=== PATIENT | female | born 1950 | race Caucasian/White ===

== ENCOUNTER 2020-06-09 15:19 | Emergency (ER) | payer OTHER, SELFPAY ==
--- NOTE | ~2020-06-09 | CT_ITS ---
EXAMINATION: CT abdomen pelvis w con INDICATION: Lower abdominal pain TECHNIQUE: Computed tomographic images of the abdomen and pelvis were obtained after the administrati on of 100 cc of Omnipaque 350 intravenous contrast. The dose-length product (DLP) was 516.76 mGy-cm. Automated exposure control and iterative reconstruction technique were employed. COMPARISON: 02/03/2019 FINDINGS: Minimal dependent atelectasis is present in the lung bases. The heart size is normal. The l iver, spleen, pancreas, gallbladder, and adrenal glands are normal. There are peripelvic cysts of the otherwise normal-appearing kidneys. There is calcified atherosclerosis of the aorta and many of the other arteries. No pathologically enlarged abdominal or pelvic lymph nodes are identified. There is c olonic diverticulosis. There is wall thickening of the distal sigmoid colon with edematous stranding of the adjacent perisigmoid fat. No free intraperitoneal gas is identified. There are no dilated loop s of bowel. There is moderate lumbar spondylosis. IMPRESSION: 1. Acute sigmoid diverticulitis without complication. Reviewed, dictated and finalized at location [facility].
[2020-06-09 15:45] VITALS: BP 147/67; PULSE 85; RESP 18; TEMP 36.2; O2SAT 98
[2020-06-09 16:16] LABS: Basophils Absolute Auto 0.1 K/mm3 (0.0-0.1); Basophils Percent Auto 1.3 % (0.2-1.2); Eosinophils Absolute Auto 0.4 K/mm3 (0-0.3); Eosinophils Percent Auto 5.9 % (0-4.4); Hematocrit 39.4 % (37.0-47.0); Hemoglobin 13.3 g/dL (12.0-15.0); Immature Granulocyte Absolute 0.01 K/mm3 (0.00-0.031); Immature Granulocyte Percent A 0.2 % (0-0.5); Lymphocytes Absolute Auto 1.84 K/mm3 (0.9-3.2); Mean Corpuscular HGB Conc 33.8 g/dl (32-36); Mean Corpuscular Hemoglobin 30.8 pg (26-34); Mean Corpuscular Volume 91.2 fl (80-100); Monocytes Absolute Auto 0.7 K/mm3 (0.1-0.6); Monocytes Percent Auto 10.9 % (2.6-8.5); Neutrophils Absolute Auto 3.2 K/mm3 (1.3-6.7); Neutrophils Percent Auto 51.7 % (45.5-73.1); Platelet Count Result 265 k/mm3 (150-375); Red Blood Count 4.32 M/mm3 (4.2-5.4); Red Cell Distribution Width 11.9 % (11.5-14.5); White Blood Count 6.1 K/mm3 (4.5-10.0)
[2020-06-09 16:31] LABS: Alanine Aminotransferase 10 U/L (4-35); Albumin Level 4.4 g/dL (3.5-5.1); Alkaline Phosphatase 68 U/L (38-126); Anion Gap 9 mmol/L (8-16); Aspartate Amino Transferase 18 U/L (14-36); Bilirubin,Total 0.5 mg/dL (0.2-1.3); Blood Urea Nitrogen 18 mg/dL (7-17); Calcium 9.7 mg/dL (8.4-10.2); Carbon Dioxide 26 mmol/L (22-30); Chloride 107 mmol/L (98-107); Estimated CRCL calculation 49 ml/min; Estimated Glomerular Filt Rate > 60; Glucose 106 mg/dL (65-105); Lipase 35 U/L (23-300); Sodium 142 mmol/L (137-145)
--- NOTE | 2020-06-09 16:59 | ED.ABDPAIN ---
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 Patient reportedly sent here by her primary care physician for imaging studies. Patient has had 2 days of lower abdominal pain, cramping in nature. No back pain or upper abdominal pain. No chest pain or shortness of breath. No fever, chills, nausea or vomiting. Pain is sharp, cramping in nature worse with movement. No associated diarrhea or constipation. No dysuria or hematuria. Patient with history of hysterectomy, denies other abdominal surgeries. Related Data Allergies Allergy/AdvReac Type Severity Reaction Status Date / Time Penicillins Allergy Unknown Verified 06/09/20 17:09 Review of Systems Review of Systems: Narrative: CONSTITUTIONAL: Denies fever EYES: Denies visual changes ENT: Denies rhinorrhea CARDIOVASCULAR: Denies chest pain RESPIRATORY: Denies cough or dyspnea. GASTROINTESTINAL: Lower abdominal pain without nausea or vomiting GENITOURINARY: Denies dysuria or hematuria. SKIN: Denies rash or itching. MUSCULOSKELETAL: Denies back pain NEUROLOGIC: Denies headache PMFSH Past Medical History Medical History Diverticulitis Hypertension Surgical History Surgical History (Updated 06/09/20 @ 17:55 by Radha Cole MD) H/O inguinal hernia repair H/O: hysterectomy History of tonsillectomy Family History Family History (Updated 12/23/14 @ 20:48 by DOCTOR UNKNOWN) Mother Family history of Alzheimer's disease, Onset Age: 90 Patient's mother is , Onset Age: 90 Father Family history of coronary artery disease, Onset Age: 50 Patient's father is Social History Social History Smoking status: Never smoker Alcohol intake: never Gender identity (if verbalized by the patient): Female Exam Narrative: Exam Narrative: GENERAL: Awake, alert, conversant HEAD: Normocephalic, atraumatic. EYES: PERRLA and EOMI. ENT: Nares clear, no rhinorrhea or epistaxis. Mucous membranes moist. NECK: Supple. CHEST: No respiratory distress, breathing even and non labored HEART: Regular rate, sinus rhythm ABDOMEN:Non distended, mild lower abdominal tenderness left and right lower quadrant, no rebound, no guarding, nonrigid EXTREMITIES: Normal range of motion. No edema. SKIN: Warm, dry, no rash. NEURO:No focal deficits. Alert and oriented x3 Course Vital Signs Vital signs: Vital Signs Temperature 36.2 C L 06/09/20 15:45 Pulse Rate 85 06/09/20 15:45 Respiratory Rate 18 06/09/20 15:45 Blood Pressure 147/67 H 06/09/20 15:45 Pulse Oximetry 98 06/09/20 15:45 Temperature 36.2 C L 06/09/20 15:45 Pulse Rate 64 06/09/20 18:01 Respiratory Rate 15 06/09/20 18:01 Blood Pressure 133/58 L 06/09/20 18:01 Pulse Oximetry 96 06/09/20 18:01 MDM - Abdominal Pain MDM Narrative Medical decision making narrative: Patient presented for lower abdominal pain. Stable vital signs. No leukocytosis. No UTI. No electrolyte derangement. CT scan confirms acute uncomplicated sigmoid diverticulitis. Patient is tolerating oral intake, pain is controlled, no vomiting. Will be discharged home with oral antibiotics. Given close return precautions. I spoke with patient and her through a director of user experience at length regarding her symptoms, diagnosis today and treatment plan. Differential Diagnosis Differential diagnosis: Likely abdominal pain, acute appendicitis, diverticulitis and pancreatitis Medical Records Attestation: I reviewed the patient's medical records. Lab Data Attestation: I reviewed the patient's lab results. Result
[2020-06-09 17:21] LABS: Add Urine Microscopic? NO; Appearance Urine Clear (Clear); Bilirubin Urine Negative (Negative); Blood Urine Negative (Negative); Color Urine Yellow (Yellow); Glucose Urine UA Negative (Negative); Ketones Urine Negative (Negative); Leukocyte Esterase Ur Negative LEU/UL (Negative); Nitrate Urine Negative (Negative); Protein Urine Negative (Negative); Specific Grav Ur 1.027 (1.001-1.035); Urobilinogen Urine Negative mg/dL (<2.0)
[2020-06-09 18:01] VITALS: BP 133/58; PULSE 64; RESP 15; O2SAT 96
[2020-06-09 19:31] VITALS: BP 134/78; PULSE 72; RESP 16; TEMP 36.6; O2SAT 98
== END 2020-06-09 19:31 | disposition home or self-care (01) ==
PROVIDERS: General Practice; Emergency Provider Emergency Medicine; PCP Physician Assistant
DX: K57.92 Diverticulitis of intestine, part unspecified, without perforation or abscess without bleeding (principal); I10 Essential (primary) hypertension
CPT/HCPCS: 36415; 74177; 80053; 81003; 83690; 85025; 99284; Q9967

== ENCOUNTER → 2020-09-23 13:31 | Outpatient (CLI) | payer OTHER, SELFPAY ==
--- NOTE | ~2020-09-23 | MM_ITS ---
EXAMINATION: MM screening arlyn BI w chanell HISTORY: Screening mammogram TECHNIQUE: Craniocaudal and mediolateral oblique 3-D tomosynthesis images were obtained and synthetic 2-D images were generated. CAD analysis was submitted and interpreted. COMPARISON: 07/28/2019, 05/29/2018, 04/30/2017 bilateral digital screening mammogram examinations BREAST PARENCHYMAL COMPOSITION: There are scattered areas of fibroglandular density. FINDINGS: There is no evidence of suspicious mass, calcification, or architectural distortion to sugg est malignancy in either breast. There has been no suspicious interval change. IMPRESSION: 1. No mammographic evidence of malignancy. 2. Recommend routine screening mammography in one year. BI-RADS Category 1: Negative Reviewed, dictated and finalized at location A. OP ENGINEER
== END ==
PROVIDERS: Visit Provider Physician Assistant
DX: Z12.31 Encounter for screening mammogram for malignant neoplasm of breast (principal)
CPT/HCPCS: 77063; 77067

== ENCOUNTER → 2020-10-11 03:58 | Outpatient (CLI) | payer OTHER, SELFPAY ==
[2020-10-12 18:18] LABS: SARS-CoV-2 RNA PCR Negative
== END ==
PROVIDERS: Family Provider Family Medicine Adolescent Medicine; PCP Physician Assistant; Visit Provider Internal Medicine Gastroenterology
DX: Z01.812 Encounter for preprocedural laboratory examination (principal); Z20.822 Contact with and (suspected) exposure to COVID-19
CPT/HCPCS: C9803; U0003; U0005

== ENCOUNTER 2020-10-14 01:27 | Day surgery (SDC) | payer OTHER, SELFPAY ==
[2020-09-29 10:58] VITALS: BMI 26.4
[2020-10-14 09:55] VITALS: BP 92/40; PULSE 92; RESP 18; TEMP 35.9; O2SAT 97; BMI 25.7
--- NOTE | 2020-10-14 09:56 | WPDANESEPPF ---
Anes - Initial Pre Proc Eval Procedure: Operation Date: 10/14/20 11:00 Proposed Procedures p Esophagogastroduodenoscopy & Colonoscopy - Mario Portillo MD Date/Time: 10/14/20 09:56 Surgeon: Mario Portillo MD Pre Op Diagnosis: Weight loss, Nausea, Diverticulosis Patient Data Age: 70 Gender: F Height: 5 ft 4 in Weight: 70 kg Allergies Allergy/AdvReac Type Severity Reaction Status Date / Time Penicillins Allergy Unknown Verified 10/14/20 09:53 Home Medications Medication Instructions Recorded Confirmed Type hyoscyamine sulfate 0.125 mg tablet 0.125 mg PO QID 09/26/20 10/14/20 History omeprazole 20 mg capsule,delayed 20 mg PO DAILY 09/26/20 10/14/20 History release tolterodine 4 mg capsule,extended 4 mg PO Q24H 09/26/20 10/14/20 History release 24 hr vitamin B12 500 mcg-folic acid 400 1 tablet PO DAILY 09/26/20 10/14/20 History mcg tablet calcium carbonate-vit D3-min 1 tablet PO DAILY 09/29/20 10/14/20 History [Calcium-Vitamin D] Patient hx anesthesia problems: none Family hx anesthesia problems: none PMFSH Past Medical History Medical History (Updated 09/26/20 @ 14:43 by GARFIELD Helton) Diverticulitis Hypertension Nausea Weight loss Surgical History Surgical History H/O inguinal hernia repair H/O: hysterectomy History of tonsillectomy Family History Family History Mother Family history of Alzheimer's disease, Onset Age: 90 Patient's mother is , Onset Age: 90 Father Family history of coronary artery disease, Onset Age: 50 Patient's father is Social History Social History Smoking status: Never smoker Alcohol intake: never Substance use: never Substance use type: does not use Living arrangements: with family Gender identity (if verbalized by the patient): Female Spiritual care concerns: No Anes - Eval Final PreProcedure Day of Procedure 10/14/20 09:56 Patient weight: normal Heart: regular rate and rhythm Lungs: clear to auscultation Airway: Mallampati scale class II Neurological: alert and oriented Last oral intake: >/= 8 hours ASA classification: II Emergent: no Anesthetic plan: proceed Anesthesia type and monitoring: general GIVS and standard monitoring Informed Consent: The patient's anesthetic plan and its attendant risks and benefits were discussed with the patient/family/POA. Questions were solicited and answers provided to the satisfaction of the patient/family/POA.
[2020-10-14] MEDS: LACTATED RINGERS 1,000 ML 150 ML IV CONT (10:10)
--- NOTE | 2020-10-14 11:29 | WPDHPUPDATE1 ---
History and Physical Update Update Date/Time: 10/14/20 11:29 History and Physical has been reviewed, including an updated exam of the patient. There are NO changes in the patient's condition. Risks, benefits, and alternatives have been discussed and questions answered. Patient agrees to proceed with procedure.
--- NOTE | 2020-10-14 12:09 | SUR.OPER ---
EGD START 1141, END 1149 COLONOSCOPY START 1154, END 1207
[2020-10-14 12:10] VITALS: BP 110/63; PULSE 65; RESP 19; O2SAT 100
[2020-10-14 12:20] VITALS: BP 118/66; PULSE 66; RESP 16; O2SAT 100
[2020-10-14 12:30] VITALS: BP 126/50; PULSE 68; RESP 18; O2SAT 100
== END 2020-10-14 13:17 | disposition home or self-care (01) ==
PROVIDERS: Family Provider Family Medicine Adolescent Medicine; PCP Physician Assistant; Visit Provider Internal Medicine Gastroenterology
PROC: 0DJ08ZZ Inspection of Upper Intestinal Tract, Via Natural or Artificial Opening Endoscopic (ICD-10-PCS; CPT 43235; principal; 2020-10-14 11:00)
DX: Z12.11 Encounter for screening for malignant neoplasm of colon (principal); K29.50 Unspecified chronic gastritis without bleeding; K64.8 Other hemorrhoids; K57.30 Diverticulosis of large intestine without perforation or abscess without bleeding; R11.0 Nausea; R13.19 Other dysphagia; K44.9 Diaphragmatic hernia without obstruction or gangrene; K22.2 Esophageal obstruction; K29.70 Gastritis, unspecified, without bleeding; I10 Essential (primary) hypertension
CPT/HCPCS: 43239; 43249; G0121; 88305; C1726; C9803; J2001; J2704; J7120; U0003; U0005

== ENCOUNTER 2021-03-13 08:38 | Outpatient (CLI) | payer OTHER, SELFPAY ==
--- NOTE | ~2021-03-13 | CT_ITS ---
EXAMINATION: CT abdomen pelvis w con DATE: 03/13/2021 09:31 INDICATION: Abdominal pain TECHNIQUE: Computed tomography (CT) of the abdomen and pelvis was performed with 100 cc Omnipaque 350 intravenous contrast. Automated exposure control and iterative reconstruction technique were employe d. Exam dose: 488.46 mGy-cm total exam DLP. COMPARISON: 06/09/2020 CT abdomen pelvis FINDINGS: There is minimal discoid atelectasis or scarring at the lung bases. Normal heart size. No pericardial or pleural effusion. The liver, gallbladder, bile ducts, spleen, pancreas, pancreatic duct, and adrenal glands are unremar kable. 11 mm upper pole left renal cyst. 6.5 mm upper pole right renal cyst and probable small lower pole ri ght renal cyst. No urinary tract calculus or hydroureteronephrosis is evident. The urinary bladder is unremarkable. Status post hysterectomy. Small sliding hiatal hernia. There are numerous diverticula involving the sigmoid colon; no CT evidence of diverticulitis. No florence l obstruction, bowel wall thickening, pneumatosis or intraperitoneal free air is detected. There is atherosclerotic calcification of the abdominal aorta and iliac arteries but no aneurysm. There are degenerative changes of the thoracic and lumbar spine including grade 1 anterolisthesis at L4-5 due to degenerative change at the apophyseal joints. No suspicious osteolytic or osteoblastic le sions. IMPRESSION: Sigmoid: Diverticulosis; no CT evidence of diverticulitis Small sliding hiatal hernia Renal cysts Status post hysterectomy Reviewed, dictated and finalized at [facility]. Reviewed, dictated and finalized at location B.
[2021-03-13 09:21] LABS: Estimated Glomerular Filt Rate > 60
== END 2021-03-13 08:39 | disposition home or self-care (01) ==
PROVIDERS: PCP Physician Assistant; Visit Provider Physician Assistant
DX: K57.30 Diverticulosis of large intestine without perforation or abscess without bleeding (principal); K44.9 Diaphragmatic hernia without obstruction or gangrene; N28.1 Cyst of kidney, acquired
CPT/HCPCS: 74177; Q9967

== ENCOUNTER → 2021-10-10 14:26 | Outpatient (CLI) | payer OTHER, SELFPAY ==
--- NOTE | ~2021-10-10 | MM_ITS ---
EXAMINATION: MM screening arlyn BI w chanell HISTORY: Screening TECHNIQUE: Craniocaudal and mediolateral oblique 3-D tomosynthesis images were obtained and synthetic 2-D images were generated. CAD analysis was submitted and interpreted. COMPARISON: Comparison to multiple prior studies sequentially, with oldest reviewed study dated 04/25. BREAST PARENCHYMAL COMPOSITION: There are scattered areas of fibroglandular density. FINDINGS: There is no evidence of suspicious mass, calcification, or architectural distortion to sugg est malignancy in either breast. There has been no suspicious interval change. IMPRESSION: 1. No mammographic evidence of malignancy. 2. Recommend routine screening mammography in one year. BI-RADS Category 1: Negative Reviewed, dictated and finalized at location A. MARKETING DIRECTOR
== END ==
PROVIDERS: PCP Physician Assistant; Visit Provider Physician Assistant
DX: Z12.31 Encounter for screening mammogram for malignant neoplasm of breast (principal)
CPT/HCPCS: 77063; 77067

== ENCOUNTER → 2022-01-18 12:25 | Outpatient (CLI) | payer OTHER, SELFPAY ==
--- NOTE | ~2022-01-18 | CT_ITS ---
EXAMINATION: CT brain wo/w con DATE: 01/18/2022 13:22 INDICATION: Dizziness. Alzheimer's. TECHNIQUE: Computed tomography (CT) of the head was performed without and with 100 cc Omnipaque 300 i ntravenous contrast. The dose-length product was 1199.14 mGy-cm. Automated exposure control and itera tive reconstruction technique were employed. COMPARISON: MRI dated 03/26/2006 FINDINGS: Mild generalized atrophy. There are scattered mild periventricular and subcortical white ma tter changes, most likely related to small vessel ischemic disease (microangiopathy). No ventriculome lima or midline shift. No acute intracranial hemorrhage, infarction, mass or mass effect. Basilar cis terns are patent. No abnormal contrast enhancement. There is mucosal thickening of the maxillary and ethmoid sinuses. Mastoids are pneumatized. Midline sagittal images demonstrate a normal corpus callos um and craniovertebral junction. IMPRESSION: 1. No acute intracranial abnormality. 2: Moderate sinus disease. Reviewed, dictated and finalized at location B.
[2022-01-18 13:04] LABS: Estimated Glomerular Filt Rate > 60
== END ==
PROVIDERS: PCP Physician Assistant; Visit Provider Physician Assistant
DX: R42 Dizziness and giddiness (principal); R41.3 Other amnesia; J32.9 Chronic sinusitis, unspecified
CPT/HCPCS: 70470; Q9967

== ENCOUNTER → 2022-11-27 10:31 | Outpatient (CLI) | payer OTHER, SELFPAY ==
--- NOTE | ~2022-11-27 | XR_ITS ---
Thoracic spine: Clinical Indication: Back pain AP and lateral views were performed. No fracture is seen. There is normal alignment of the vertebrae. The intervertebral disc spaces appe ar normal. Paravertebral soft tissues appear normal. Impression: No significant abnormalities noted. Reviewed, dictated and finalized at [facility]. Impression: No significant abnormalities noted.
--- NOTE | ~2022-11-27 | MM_ITS ---
EXAMINATION: MM screening arlyn BI w chanell HISTORY: Screening TECHNIQUE: Craniocaudal and mediolateral oblique 3-D tomosynthesis images were obtained and synthetic 2-D images were generated. CAD analysis was submitted and interpreted. COMPARISON: Comparison to multiple prior studies sequentially, with oldest reviewed study dated 04/25. BREAST PARENCHYMAL COMPOSITION: Breast composed of scattered areas of fibroglandular density FINDINGS: There is no evidence of suspicious mass, calcification, or architectural distortion to sugg est malignancy in either breast. There has been no suspicious interval change. IMPRESSION: 1. No mammographic evidence of malignancy. 2. Recommend routine screening mammography in one year. BI-RADS Category 1: Negative Reviewed, dictated and finalized at location A.
== END ==
PROVIDERS: PCP Physician Assistant; Visit Provider Physician Assistant
DX: Z12.31 Encounter for screening mammogram for malignant neoplasm of breast (principal); M54.6 Pain in thoracic spine
CPT/HCPCS: 72072; 77063; 77067

== ENCOUNTER → 2023-02-11 10:21 | Outpatient (CLI) | payer OTHER, SELFPAY ==
--- NOTE | ~2023-02-11 | DEXA_ITS ---
Bone Density Report Name: NAVEEN OH Age: 72 Sex: Female Ethnicity: White Date of : 1950 Indication: osteopenia; height loss; prior fracture; hysterectomy; postmenopausal Referring Provider: KELLY, KRISS Study: Bone densitometry was performed. Exam Date: February 11, 2023 Accession number: [id number] Bone Density: Region BMD T-score Z-score Classification AP Spine (L1-L4) 0.803 -2.2 0.1 Osteopenia Femoral Neck (Left) 0.594 -2.3 -0.3 Osteopenia Total Hip (Left) 0.848 -0.8 0.9 Normal Femoral Neck (Right) 0.575 -2.5 -0.5 Osteoporosis Total Hip (Right) 0.763 -1.5 0.2 Osteopenia Total Hip Mean 0.806 -1.2 0.6 Osteopenia World Health Organization criteria for BMD impression classify patients as: Normal (T-score at or above -1.0), Osteopenia (T-score between -1.0 and -2.5), or Osteoporosis (T-score at or below -2.5). 10-year Fracture Risk: FRAX not reported because: Some T-score for Spine Total or Hip Total or Femoral Neck at or below -2.5 Previous Exams: Region Exam Age BMD T-score BMD Change BMD Change Date g/cm2 vs Baseline vs Previous AP Spine(L1-L4) 02/11/2023 72 0.803 -2.2 -0.062* -0.024* 07/28/2019 68 0.827 -2.0 -0.038* -0.037* 04/06/2015 64 0.864 -1.7 -0.001 0.053* 02/11/2013 62 0.811 -2.1 -0.054* -0.041* 12/25/2010 60 0.852 -1.8 -0.013 -0.013 12/08/2007 57 0.865 -1.7 Total Hip(Left) 02/11/2023 72 0.848 -0.8 -0.099* -0.019 07/28/2019 68 0.866 -0.6 -0.080* -0.097* 04/06/2015 64 0.963 0.2 0.017 0.088* 02/11/2013 62 0.875 -0.6 -0.072* -0.041* 12/25/2010 60 0.915 -0.2 -0.031* -0.031* 12/08/2007 57 0.946 0.0 Total Hip(Right) 02/11/2023 72 0.763 -1.5 -0.123* -0.042* 07/28/2019 68 0.804 -1.1 -0.082* -0.081* 04/06/2015 64 0.885 -0.5 -0.001 0.081* 02/11/2013 62 0.804 -1.1 -0.082* -0.036* 12/25/2010 60 0.840 -0.8 -0.046* -0.046* 12/08/2007 57 0.886 -0.5 *Denotes significance at 95% confidence level, LSC for AP Spine = 0.022 g/cm2, LSC for Total Hip = 0.027 g/cm2 Clinical Information Provided by Patient: Has had a low trauma fracture Has used the following medications: Vitamin D, Calcium Has the following medical conditions: Hysterectomy Patient maximum height was 65
== END ==
PROVIDERS: PCP Physician Assistant; Visit Provider Physician Assistant
DX: M81.0 Age-related osteoporosis without current pathological fracture (principal); Z78.0 Asymptomatic menopausal state; Z90.710 Acquired absence of both cervix and uterus
CPT/HCPCS: 77080

== ENCOUNTER 2024-01-30 11:10 | Emergency (ER) | payer OTHER, SELFPAY ==
--- NOTE | ~2024-01-30 | CT_ITS ---
EXAMINATION: CT abdomen pelvis w con DATE: 01/30/2024 12:37 INDICATION: Abdominal pain. TECHNIQUE: Computed tomography (CT) of the abdomen and pelvis was performed with 100 mL Omnipaque 350 intravenous contrast. Automated exposure control and iterative reconstruction technique were employe d. The dose-length product was 443.08 mGy-cm. COMPARISON: CT abdomen and pelvis 03/13/2021 FINDINGS: The visualized portions of the lung bases demonstrate mild atelectasis. No pleural effusion . The heart size is normal. No pericardial effusion. The liver is normal. The gallbladder is distende d, likely secondary to fasting. The spleen, pancreas, and adrenal glands are normal. There is cortica l thinning of the kidneys. There are cysts in the kidneys measuring up to 1.7 cm on the left. There i s calcified atherosclerosis of the aorta and many of the other arteries. There are scattered divertic remy in the colon. There is wall thickening of the sigmoid colon with surrounding fat stranding, consi stent with diverticulitis. There are no dilated loops of bowel. The appendix is not visualized. There are no pathologically enlarged lymph nodes. There is no ascites. There is mild thoracic spondylosis and moderate lumbar spondylosis. There is mild chronic anterior wedging of multiple thoracic vertebra l bodies. IMPRESSION: 1. Acute sigmoid diverticulitis. No perforation or abscess. Reviewed, dictated and finalized at location A.
[2024-01-30 11:18] VITALS: BP 148/73; PULSE 87; RESP 14; TEMP 36.8; O2SAT 97
[2024-01-30 11:45] LABS: Basophils Absolute Auto 0.1 K/mm3 (0.0-0.1); Basophils Percent Auto 0.4 % (0.2-1.2); Eosinophils Absolute Auto 0.1 K/mm3 (0-0.3); Eosinophils Percent Auto 0.3 % (0-4.4); Hematocrit 40.1 % (37.0-47.0); Hemoglobin 13.2 g/dL (12.0-15.0); Immature Granulocyte Absolute 0.06 K/mm3 (0.00-0.031); Immature Granulocyte Percent A 0.4 % (0-0.5); Lymphocytes Absolute Auto 0.87 K/mm3 (0.9-3.2); Lymphocytes Percent Auto 5.8 % (18.3-44.2); Mean Corpuscular HGB Conc 32.9 g/dl (32-36); Mean Corpuscular Volume 94.1 fl (80-100); Mean Platelet Volume 10.3 fl (7.4-10.4); Monocytes Absolute Auto 0.9 K/mm3 (0.1-0.6); Monocytes Percent Auto 5.6 % (2.6-8.5); Neutrophils Absolute Auto 13.2 K/mm3 (1.3-6.7); Neutrophils Percent Auto 87.5 % (45.5-73.1); Platelet Count Result 230 k/mm3 (150-375); Red Blood Count 4.26 M/mm3 (4.2-5.4); Red Cell Distribution Width 12.7 % (11.5-14.5); White Blood Count 15.1 K/mm3 (4.5-10.0)
[2024-01-30 11:56] LABS: Alanine Aminotransferase 20 U/L (6-35); Albumin Level 4.4 g/dL (3.5-5.1); Alkaline Phosphatase 77 U/L (38-126); Anion Gap 7 mmol/L (4-12); Aspartate Amino Transferase 38 U/L (14-36); Bilirubin,Total 0.8 mg/dL (0.2-1.3); Blood Urea Nitrogen 15 mg/dL (7-17); Calcium 9.2 mg/dL (8.4-10.2); Carbon Dioxide 23 mmol/L (22-30); Chloride 105 mmol/L (98-107); Estimated CRCL calculation 55 ml/min; Estimated Glomerular Filt Rate > 60; Glucose 140 mg/dL (65-110); Lipase 35 U/L (23-300); Sodium 135 mmol/L (137-145)
[2024-01-30 12:11] LABS: Appearance Urine Clear (Clear); Bilirubin Urine Negative (Negative); Blood Urine Negative (Negative); Color Urine Yellow (Yellow); Glucose Urine UA Negative (Negative); Ketones Urine Negative (Negative); Leukocyte Esterase Ur Negative LEU/UL (Negative); Nitrate Urine Negative (Negative); Protein Urine Negative (Negative); Specific Grav Ur 1.019 (1.001-1.035); pH Urine 7.5 (5.0-9.0)
--- NOTE | 2024-01-30 12:14 | ED.ABDPAIN ---
HPI - Abdominal Pain General Chief Complaint: Abdominal Pain Stated Complaint: ulcer Time Seen by Provider: 01/30/24 11:56 History of Present Illness HPI narrative: [age] female presenting to the emergency department for evaluation for abdominal pain. Patient reports the pain did started approximately 430 this morning. Patient does report associated nausea. Patient is deaf and does communicate by writing. Related Data Home Medications Medication Instructions Recorded Confirmed hyoscyamine sulfate 0.125 mg tablet 0.125 mg PO QID 09/26/20 10/14/20 omeprazole 20 mg capsule,delayed 20 mg PO DAILY 09/26/20 10/14/20 release tolterodine 4 mg capsule,extended 4 mg PO Q24H 09/26/20 10/14/20 release 24 hr vitamin B12 500 mcg-folic acid 400 1 tablet PO DAILY 09/26/20 10/14/20 mcg tablet calcium carb-vit D3-minerals 600 1 tablet PO DAILY 09/29/20 10/14/20 mg calcium-400 unit tablet Allergies Allergy/AdvReac Type Severity Reaction Status Date / Time Penicillins Allergy Unknown Verified 01/30/24 11:27 Review of Systems Review of Systems: All systems reviewed & are unremarkable except as noted in HPI and below PMFSH Past Medical History Medical History (Updated 01/30/24 @ 13:01 by Andres Alves MD) Diverticulitis Hypertension Nausea Weight loss Surgical History Surgical History H/O inguinal hernia repair H/O: hysterectomy History of tonsillectomy Family History Family History Mother Family history of Alzheimer's disease, Onset Age: 90 Patient's mother is , Onset Age: 90 Father Family history of coronary artery disease, Onset Age: 50 Patient's father is Social History Social History Smoking status: Never smoker Alcohol intake: never Substance use: never Substance use type: does not use Living arrangements: with family Gender identity (if verbalized by the patient): Female Spiritual care concerns: No Exam Narrative: APPEARANCE: Well appearing, no pain, no distress, well-nourished. HEAD: normocephalic, atraumatic. EYES: PERRLA/EOMI, conjunctivae clear. NOSE: Normal no drainage EARS:TMS clear with good light reflex. THROAT: Pharynx clear, no exudate. NECK: Supple. No adenopathy, no masses. RESPIRATORY: Airway patent, respirations nonlabored. Clear to auscultation bilaterally, no rales, rhonchi, wheezing. CARDIOVASCULAR: Regular rate and rhythm without murmurs rubs or gallops. ABDOMINAL: Diffuse low abdominal tenderness to palpation MUSCULOSKELETAL: Moves all extremities. Strength/ROM intact, No edema, No calf tenderness. NEURO: Alert. Cranial nerves II through XII intact. Grossly Course Vital Signs Vital signs: Vital Signs Temperature 98.3 F 01/30/24 11:18 Pulse Rate 87 01/30/24 11:18 Respiratory Rate 14 01/30/24 11:18 Blood Pressure 148/73 H 01/30/24 11:18 Pulse Oximetry 97 01/30/24 11:18 Oxygen Delivery Room Air 01/30/24 11:18 Temperature 98.3 F 01/30/24 11:18 Pulse Rate 87 01/30/24 11:18 Respiratory Rate 14 01/30/24 11:18 Blood Pressure 148/73 H 01/30/24 11:18 Pulse Oximetry 97 01/30/24 11:18 Oxygen Delivery Room Air 01/30/24 11:18 MDM - Abdominal Pain MDM Narrative Medical decision making narrative: [age] female present to the emergency department for evaluation of abdominal pain. Patient is afebrile with normal vital signs. Patient does have a leukocytosis of 15.1 with a stable hemoglobin. No acute abnormalities on the patient's CMP and patient's UA was negative. CT scan does show evidence diverticulitis with no abscess or perforation. Patient was updated on results of her workup. Patient states that she does feel strong for discharge her home and that her pain is contro
[2024-01-30 12:16] LABS: Add Urine Microscopic? NO
[2024-01-30] MEDS: metroNIDAZOLE 500 MG TABLET PO (13:07)
[2024-01-30] MEDS: CIPROFLOXACIN 500 MG TAB PO (13:07)
== END 2024-01-30 13:12 | disposition home or self-care (01) ==
PROVIDERS: Student in an Organized Health Care Education/Training Program; Emergency Provider Emergency Medicine
DX: K57.32 Diverticulitis of large intestine without perforation or abscess without bleeding (principal); I10 Essential (primary) hypertension; H91.90 Unspecified hearing loss, unspecified ear; Z90.710 Acquired absence of both cervix and uterus; Z79.899 Other long term (current) drug therapy
CPT/HCPCS: 36415; 74177; 80053; 81003; 83690; 85025; 99284; A9270; Q9967

== ENCOUNTER 2024-02-08 11:41 | Emergency (ER) | payer OTHER, SELFPAY ==
--- NOTE | 2024-02-08 11:55 | ED.SKABFB ---
HPI - Skin/Abscess/Foreign Bdy General Chief complaint: Skin/Abscess/Foreign Body Stated complaint: Itchy Rash on Arms Time Seen by Provider: 02/08/24 12:00 Source: patient, RN notes reviewed and old records reviewed Mode of arrival: ambulatory Limitations: no limitations History of Present Illness HPI narrative: 73-year-old female presents to the [facility] with itchy rash to her arms. States that she just finished antibiotics 2 days ago. Tried some new cod fish yesterday. Has some new sheets but will reports that she did wash arm. Denies any new creams or ointments lotions detergents. No treatment prior to arrival Related Data Home Medications Medication Instructions Recorded Confirmed hyoscyamine sulfate 0.125 mg tablet 0.125 mg PO QID 09/26/20 02/08/24 omeprazole 20 mg capsule,delayed 20 mg PO DAILY 09/26/20 02/08/24 release tolterodine 4 mg capsule,extended 4 mg PO Q24H 09/26/20 02/08/24 release 24 hr vitamin B12 500 mcg-folic acid 400 1 tablet PO DAILY 09/26/20 02/08/24 mcg tablet calcium carb-vit D3-minerals 600 1 tablet PO DAILY 09/29/20 02/08/24 mg calcium-400 unit tablet Allergies Allergy/AdvReac Type Severity Reaction Status Date / Time Penicillins Allergy Unknown Verified 02/08/24 11:44 Review of Systems Review of Systems: All systems reviewed & are unremarkable except as noted in HPI and below Constitutional: Constitutional: Reports no additional constitutional complaints Eyes: Eyes: Reports no additional eye complaints ENT: Reports system reviewed and no additional complaints, except as documented Cardiovascular: Cardiovascular: Reports no additional cardiovascular complaints, Denies chest pain and Denies dyspnea Respiratory: Respiratory: Reports no additional respiratory complaints, Denies chest congestion, Denies cough and Denies dyspnea Gastrointestinal: Gastrointestinal: Reports no additional gastrointestinal complaints, Denies abdominal pain, Denies nausea and Denies vomiting Musculoskeletal: Musculoskeletal: Reports no additional musculoskeletal complaints Integumentary/Breasts: Skin/Breast: Reports as per HPI Neurologic: Reports system reviewed and no additional complaints, except as documented Psychiatric: Psychiatric: Reports no additional psychiatric complaints Allergic/Immunologic: Allergic/Immunologic: Reports no additional allergic/immunologic complaints PMFSH Past Medical History Medical History Diverticulitis Hypertension Nausea Weight loss Surgical History Surgical History H/O inguinal hernia repair H/O: hysterectomy History of tonsillectomy Family History Family History Mother Family history of Alzheimer's disease, Onset Age: 90 Patient's mother is , Onset Age: 90 Father Family history of coronary artery disease, Onset Age: 50 Patient's father is Social History Social History Smoking status: Never smoker Alcohol intake: never Substance use: never Substance use type: does not use Living arrangements: with family Gender identity (if verbalized by the patient): Female Spiritual care concerns: No Comments At the time of my signature, I reviewed and agree with the nursing past medical, surgical, social, and family history. There is no relevant family history pertinent to the patient complaint. Exam Const: General: cooperative, healthy appearing, comfortable, no acute distress, well developed, alert and well nourished Nutritional Appearance: well nourished Orientation/consciousness: patient oriented x3 Limitations: no limitations HENMT: Head: normal to inspection Ears: hearing grossly normal bilaterally and external ears normal Face/Nose/Sinus: Normal external nose presen
[2024-02-08 11:56] VITALS: BP 127/51; PULSE 74; RESP 16; TEMP 36.6; O2SAT 100
== END 2024-02-08 12:25 | disposition home or self-care (01) ==
PROVIDERS: Emergency Provider Nurse Practitioner; PCP Physician Assistant
DX: L50.9 Urticaria, unspecified (principal); I10 Essential (primary) hypertension
CPT/HCPCS: 99213; G0463

== ENCOUNTER 2024-02-18 12:34 | Outpatient (CLI) | payer OTHER, SELFPAY ==
--- NOTE | ~2024-02-18 | CT_ITS ---
CT abdomen pelvis w con Ordering provider: Leonie Barrios, ROLO History: 73 years Female with . LLQ PAIN . Comparison: January 30, 2024 Technique: CT abdomen and pelvis with IV and without oral contrast. Radiation reduction technique uti lized. DLP measures 408.15 mGy. Findings: VISUALIZED LOWER CHEST: Dependent atelectatic changes. UPPER ABDOMINAL ORGANS: Liver: Normal. Gallbladder: Normal. Spleen: Normal. Stomach/duodenum: Small sliding hiatus hernia. Slightly thickened wall of the stomach. Pancreas: Normal. Adrenals: Normal. Kidneys: Bilateral renal cysts. PELVIC ORGANS: The bladder is underfilled. BOWEL AND MESENTERY: Colon: Mild sigmoid diverticulosis without diverticulitis. Fecal material seen in the colon suggestiv e of constipation. No evidence of appendicitis. Small Bowel: Normal. No obstruction. Peritoneum/mesentery: No free air or free fluid. No mesenteric lymphadenopathy. RETROPERITONEUM: Mild atheromatous disease of the abdominal aorta. No retroperitoneal lymphadenopat hy. MUSCULOSKELETAL: Superficial soft tissues: The superficial soft tissues are normal. Bones: Normal spine. IMPRESSION: 1. No acute abdominal process with no evidence of appendicitis, diverticulitis or intestinal obstruc tion. 2. Constipation. Reviewed, dictated and finalized at location A. IMPRESSION: 1. No acute abdominal process with no evidence of appendicitis, diverticulitis or intestinal obstruction. 2. Constipation.
== END 2024-02-18 12:35 | disposition home or self-care (01) ==
LOC: ANHIMG 12:37
PROVIDERS: PCP Physician Assistant; Visit Provider Physician Assistant
DX: R10.32 Left lower quadrant pain (principal); K59.00 Constipation, unspecified
CPT/HCPCS: 74177; Q9967

== ENCOUNTER 2024-04-17 08:37 | Outpatient (CLI) | payer OTHER, SELFPAY ==
--- NOTE | ~2024-04-17 | CT_ITS ---
EXAMINATION: CT abdomen pelvis w con DATE: 04/17/2024 09:31 INDICATION: Left lower quadrant abdominal pain TECHNIQUE: Computed tomography (CT) of the abdomen and pelvis was performed with 100 mL Omnipaque-350 intravenous contrast. Automated exposure control and iterative reconstruction technique were employe d. The dose-length product was 550.58 mGy-cm. COMPARISON: 02/18/2024 FINDINGS: Mild dependent atelectasis in the bilateral lower lobes. Heart size is normal. No pericardial or pleu ral effusion. Liver, gallbladder, spleen, pancreas and bilateral adrenal glands are normal. A few sub centimeter cysts at both kidneys with additional small parapelvic cysts at the left kidney. There is moderate colonic diverticulosis with a sigmoid predominance and without adjacent inflammatory change to suggest diverticulitis. No bowel obstruction. The uterus is not identified and has likely been pope rgically resected. Bladder is normal. Several surgical clips position between the along the anteroinf erior bladder and along the deep margin of the inferior anterior pelvic wall. No free intraperitoneal gas or fluid. No pathologically enlarged abdominal or pelvic lymphadenopathy. Mild lumbar levocurvat ure with mild to moderate spondylosis. There is mild thoracic spondylosis with chronic mild anterior wedging of a couple lower thoracic vertebral bodies. IMPRESSION: 1. Diverticulosis without evident diverticulitis or other acute intra-abdominal/pelvic process. Reviewed, dictated and finalized at location A. IMPRESSION: 1. Diverticulosis without evident diverticulitis or other acute intra-abdominal /pelvic process.
[2024-04-17 09:22] LABS: Estimated Glomerular Filt Rate > 60
[2024-04-17 10:14] LABS: Hematocrit 37.9 % (37.0-47.0); Hemoglobin 12.5 g/dL (12.0-15.0); Mean Corpuscular Hemoglobin 31.3 pg (26-34); Mean Platelet Volume 10.7 fl (7.4-10.4); Platelet Count Result 218 k/mm3 (150-375); Red Blood Count 3.99 M/mm3 (4.2-5.4); Red Cell Distribution Width 12.8 % (11.5-14.5); White Blood Count 5.2 K/mm3 (4.5-10.0)
[2024-04-17 10:17] LABS: Add Urine Microscopic? NO; Appearance Urine Clear (Clear); Bilirubin Urine Negative (Negative); Blood Urine Negative (Negative); Color Urine Yellow (Yellow); Glucose Urine UA Negative (Negative); Ketones Urine Negative (Negative); Leukocyte Esterase Ur Negative LEU/UL (Negative); Nitrate Urine Negative (Negative); Protein Urine Negative (Negative); Specific Grav Ur > 1.045 (1.001-1.035); Urobilinogen Urine 0.2 mg/dL (<2.0)
[2024-04-17 10:39] LABS: CRP < 0.5 mg/dL (<1.0)
[2024-04-17 12:10] LABS: Erythrocyte Sedimentation Rate 28 mm/hr (0-20)
== END 2024-04-17 08:38 | disposition home or self-care (01) ==
LOC: ANHIMG 08:49
PROVIDERS: PCP Physician Assistant; Visit Provider Nurse Practitioner
DX: R10.32 Left lower quadrant pain (principal); K57.90 Diverticulosis of intestine, part unspecified, without perforation or abscess without bleeding; K58.1 Irritable bowel syndrome with constipation; R10.2 Pelvic and perineal pain; R63.4 Abnormal weight loss; R82.90 Unspecified abnormal findings in urine; Z87.19 Personal history of other diseases of the digestive system
CPT/HCPCS: 36415; 74177; 81003; 85027; 85652; 86140; Q9967

== ENCOUNTER 2024-05-11 13:36 | Outpatient (CLI) | payer OTHER, SELFPAY ==
--- NOTE | ~2024-05-11 | MM_ITS ---
EXAMINATION: MM screening arlyn BI w chanell HISTORY: Screening mammogram TECHNIQUE: Craniocaudal and mediolateral oblique 3-D tomosynthesis images were obtained and synthetic 2-D images were generated. CAD analysis was submitted and interpreted. COMPARISON: 11/27/2022, 10/10/2021, 09/23/2020 BREAST PARENCHYMAL COMPOSITION:Not Dense. The breasts are almost entirely fatty FINDINGS: No suspicious mass, calcification, or architectural distortion are identified in either oumar ast to suggest malignancy. There has been no suspicious interval change. IMPRESSION: No mammographic evidence of malignancy. Recommend routine screening mammography in one year. BI-RADS Category 1: Negative Reviewed, dictated and finalized at location .
== END 2024-05-11 13:37 | disposition home or self-care (01) ==
LOC: MICIMG 13:37
PROVIDERS: PCP Physician Assistant; Visit Provider Physician Assistant
DX: Z12.31 Encounter for screening mammogram for malignant neoplasm of breast (principal)
CPT/HCPCS: 77063; 77067

== ENCOUNTER 2024-06-23 14:51 | Outpatient (CLI) | payer OTHER, SELFPAY ==
--- NOTE | ~2024-06-23 | XR_ITS ---
XR shoulder RT min 2V Ordering provider: Leonie Barrios, ROLO History: . Chronic R shoulder pain . Comparison: None. FINDINGS: BONES: No acute fracture or dislocation. JOINT SPACES: The acromioclavicular joint shows mild osteoarthritic changes. The glenohumeral joint i s normal. SOFT TISSUES: Normal. IMPRESSION: No acute osseous abnormality right shoulder. Reviewed, dictated and finalized at location A.
--- NOTE | ~2024-06-23 | XR_ITS ---
XR hip LT 2V w AP pelvis 06/23/2024 15:25 Indication: Hip pain Procedure: 3 views of the left hip including AP pelvis Comparison: No prior studies for comparison. Findings: No fracture, subluxation or dislocation. There is mild osteoarthritis in the left hip. No s ignificant soft tissue abnormality. No foreign bodies. Impression: 1: Mild osteoarthritis of the left hip. Reviewed, dictated and finalized at location B. Impression: 1: Mild osteoarthritis of the left hip.
== END 2024-06-23 14:52 | disposition home or self-care (01) ==
LOC: MICIMG 14:52
PROVIDERS: PCP Physician Assistant; Visit Provider Physician Assistant
DX: M25.511 Pain in right shoulder (principal); G89.29 Other chronic pain; M16.12 Unilateral primary osteoarthritis, left hip
CPT/HCPCS: 73030; 73502

== ENCOUNTER 2024-08-14 03:29 | Day surgery (SDC) | payer OTHER, SELFPAY ==
[2024-05-29 12:44] VITALS: BMI 27.5
[2024-07-08 15:31] VITALS: BMI 27.5
[2024-08-05 13:36] VITALS: BMI 27.5
--- NOTE | 2024-08-14 12:58 | P.PNAN_ITS ---
Anes - Initial Pre Proc Eval Procedure: Operation Date: 08/14/24 14:30 Proposed Procedures p Colonoscopy - Mario Portillo MD Date/Time: 08/14/24 12:58 Surgeon: Mario Portillo MD Pre Op Diagnosis: LLQ Pain, Constipation, Diverticulitis w/o bleedin Patient Data Age: 73 Gender: F Height: 1.6 m Weight: 70.4 kg Allergies Allergy/AdvReac Type Severity Reaction Status Date / Time Penicillins Allergy Unknown Verified 08/05/24 13:35 Home Medications ?Medication ?Instructions ?Recorded ?Confirmed ?Type omeprazole 20 mg capsule,delayed 20 mg PO DAILY 09/26/20 08/05/24 History release tolterodine 4 mg capsule,extended 4 mg PO Q24H 09/26/20 08/05/24 History release 24 hr calcium 600 mg (as carbonate)-vit 1 tablet PO DAILY 09/29/20 08/05/24 History D3 10 mcg (400 unit)-minerals tablet risedronate 150 mg tablet 150 mg PO DAILY 07/08/24 08/05/24 History Patient hx anesthesia problems: none Family hx anesthesia problems: none Results Review: All pre-operative results and documents have been reviewed as part of the pre- operative evaluation. [facility] Past Medical History Medical History Hiatal hernia Schatzki's ring Chronic gastritis (03/26/24) Irritable bowel syndrome with constipation Hx of diverticulitis of colon Nausea Weight loss Hypertension Diverticulitis Surgical History Surgical History History of tonsillectomy H/O inguinal hernia repair H/O: hysterectomy Family History Family History Mother Family history of Alzheimer's disease, Onset Age: 90 Patient's mother is , Onset Age: 90 Father Family history of coronary artery disease, Onset Age: 50 Patient's father is Social History Social History Smoking status: Never smoker Alcohol intake: never Substance use: never Substance use type: does not use Living arrangements: with family Gender identity (if verbalized by the patient): Female Spiritual care concerns: No Anes - Eval Final PreProcedure Day of Procedure 08/14/24 12:58 Patient weight: overweight Heart: regular rate and rhythm Lungs: clear to auscultation Airway: Mallampati scale class II Neurological: alert and oriented Last oral intake: >/= 8 hours ASA classification: II Emergent: no Anesthetic plan: proceed Anesthesia type and monitoring: general GIVS Results Review: All pre-operative results and documents have been reviewed as part of the pre- operative evaluation. Informed Consent: The patient's anesthetic plan and its attendant risks and benefits were discussed with the patient/family/POA. Questions were solicited and answers provided to the satisfaction of the patient/family/POA.
--- NOTE | 2024-08-14 13:11 | P.HP_ITS ---
History of Present Illness History of Present Illness Consent: Risks, benefits, and alternatives have been discussed and questions answered. Patient agrees to proceed with procedure. 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) Review of Systems Review of Systems: All systems reviewed & are unremarkable except as noted in HPI and below PMFSH Past Medical History Medical History Hiatal hernia Schatzki's ring Chronic gastritis (03/26/24) Irritable bowel syndrome with constipation Hx of diverticulitis of colon Nausea Weight loss Hypertension Diverticulitis Surgical History Surgical History History of tonsillectomy H/O inguinal hernia repair H/O: hysterectomy Family History Family History Mother Family history of Alzheimer's disease, Onset Age: 90 Patient's mother is , Onset Age: 90 Father Family history of coronary artery disease, Onset Age: 50 Patient's father is Social History Social History Smoking status: Never smoker Alcohol intake: never Substance use: never Substance use type: does not use Living arrangements: with family Gender identity (if verbalized by the patient): Female Spiritual care concerns: No Meds Home Medications and Allergies Home Medications ?Medication ?Instructions ?Recorded ?Confirmed ?Type omeprazole 20 mg capsule,delayed 20 mg PO DAILY 09/26/20 08/14/24 History release tolterodine 4 mg capsule,extended 4 mg PO Q24H 09/26/20 08/14/24 History release 24 hr calcium 600 mg (as carbonate)-vit 1 tablet PO DAILY 09/29/20 08/14/24 History D3 10 mcg (400 unit)-minerals tablet risedronate 150 mg tablet 150 mg PO DAILY 07/08/24 08/14/24 History Allergies Allergy/AdvReac Type Severity Reaction Status Date / Time Penicillins Allergy Unknown Verified 08/14/24 13:08 Exam Const: General: comfortable and no acute distress HENMT: Face/Nose/Sinus: Normal nares present Eyes: General: appearance normal, both eyes and all related structures Neck: Neck: no JVD Resp: Auscultation: clear to auscultation bilaterally Cardio: Rate: regular rate Rhythm: regular rhythm GI: Inspection: non-distended GI Palp: Yes Soft to palpation Skin: General skin exam: normal color Neuro: General: gait normal Speech: normal speech Extrem: General: normal to inspection Psych: Mental Status: mental status grossly normal Assessment and Plan Assessment and plan (1) LLQ pain: Code(s): R10.32 - Left lower quadrant pain Status: Acute Assessment and Plan: colonoscopy (2) Diverticulosis: Code(s): K57.90 - Diverticulosis of intestine, part unspecified, without perforation or abscess without bleeding Status: Acute
[2024-08-14] MEDS: LACTATED RINGERS 1,000 ML 150 ML IV CONT (13:13)
[2024-08-14 13:16] VITALS: BP 124/65; PULSE 89; RESP 16; TEMP 36.1; O2SAT 98
[2024-08-14 13:30] VITALS: BP 109/45; PULSE 59; RESP 12; O2SAT 97
[2024-08-14 13:40] VITALS: BP 103/44; PULSE 58; RESP 12; O2SAT 99
[2024-08-14 13:50] VITALS: BP 156/87; PULSE 62; RESP 14; O2SAT 100
--- NOTE | 2024-08-14 14:22 | SUR.PHASEII ---
Interpretative service used for patient discharge instructions from 13:56 to 14:07, case #[id number] Pari.
== END 2024-08-14 14:40 | disposition home or self-care (01) ==
PROVIDERS: PCP Physician Assistant; Referring Provider Nurse Practitioner; Visit Provider Internal Medicine Gastroenterology
PROC: 0DJD8ZZ Inspection of Lower Intestinal Tract, Via Natural or Artificial Opening Endoscopic (ICD-10-PCS; CPT 45378; principal; 2024-08-14 14:30)
DX: D12.3 Benign neoplasm of transverse colon (principal); K64.8 Other hemorrhoids; K57.30 Diverticulosis of large intestine without perforation or abscess without bleeding; I10 Essential (primary) hypertension; K29.50 Unspecified chronic gastritis without bleeding; K58.1 Irritable bowel syndrome with constipation; Z98.890 Other specified postprocedural states; Z87.19 Personal history of other diseases of the digestive system; Z82.49 Family history of ischemic heart disease and other diseases of the circulatory system
CPT/HCPCS: 45385; 88305; J2704; J7120

== ENCOUNTER 2025-05-12 11:02 | Outpatient (CLI) | payer OTHER, SELFPAY ==
--- NOTE | ~2025-05-12 | MM_ITS ---
EXAMINATION: MM screening arlyn BI w chanell HISTORY: Screening TECHNIQUE: Craniocaudal and mediolateral oblique 3-D tomosynthesis images were obtained and synthetic 2-D images were generated. CAD analysis was submitted and interpreted. COMPARISON: Comparison to multiple prior studies sequentially, with oldest reviewed study dated , 05/29/2018 BREAST PARENCHYMAL COMPOSITION: The breasts are almost entirely fatty. FINDINGS: There is no evidence of suspicious mass, calcification, or architectural distortion to suggest malignancy in either breast. IMPRESSION: 1. No mammographic evidence of malignancy. 2. Recommend routine screening mammography in one year. BI-RADS Category 1: Negative Reviewed, dictated and finalized at location B.
== END 2025-05-12 11:03 | disposition home or self-care (01) ==
LOC: MICIMG 11:02
PROVIDERS: PCP Physician Assistant; Visit Provider Physician Assistant
DX: Z12.31 Encounter for screening mammogram for malignant neoplasm of breast (principal)
CPT/HCPCS: 77063; 77067